=== PATIENT | female | born 1955 | race African-American/Black ===

== ENCOUNTER 2017-04-27 18:04 | Emergency (ER) | payer SELFPAY ==
[~2017-04-27] VITALS: Ht 172.7 cm; Wt 112.5 kg
[2017-04-27 18:23] VITALS: BP 156/99
--- NOTE | 2017-04-27 18:47 | Emergency Room Report ---
History of Present Illness General Chief Complaint: Dizziness Source: Patient Present Illness HPI [id number] sent by PMD Dr Manuel for dizziness for 5 days. Patient endorses "light headedness." Denies symptom worse with moving head, denies tinnitus, hearing loss, headache. Endorses "lots of stress at work." Doesnt exercise or have any other modality for relaxation Recently started on medication for BP 2 weeks ago Patient ambulated into ED. Allergies: Coded Allergies: No Known Allergies (Unverified , 04/27/17) Patient History Past Medical History: HTN Past Surgical History: none Pertinent Family History: none Social History: Denies: alcohol use, drug use, smoking Last Menstrual Period: na Now: No Immunizations: UTD Reviewed Nursing Documentation: PMH: Agreed, PSxH: Agreed Nursing Documentation-PMH Past Medical History: No History, Except For Hx Hypertension: Yes Review of Systems All Other Systems: negative except mentioned in HPI Physical Exam Vital Signs Date Time Temp Pulse Resp B/P Pulse Ox O2 Delivery O2 Flow Rate FiO2 04/27/17 18:09 98.1 68 18 156/99 98 Room Air Sp02 EP Interpretation: reviewed, abnormal General Appearance: normal inspection, well appearing, no apparent distress, alert, GCS 15, non-toxic Head: normocephalic, atraumatic Eyes: bilateral eye EOMI, bilateral eye PERRL ENT: normal ENT inspection, hearing grossly normal, normal voice, other - negative diana hallpike Neck: normal inspection, full range of motion, supple, no bony tend Respiratory: normal inspection, lungs clear, normal breath sounds, no respiratory distress, no retraction, no wheezing Cardiovascular #1: regular rate, rhythm, no edema Gastrointestinal: normal inspection, normal bowel sounds, non tender, soft, no guarding, no hernia Genitourinary: no CVA tenderness Musculoskeletal: normal inspection, back normal, normal range of motion, Pritesh' s Sign negative Neurologic: normal inspection, alert, oriented x3, responsive, manager operating III-XII nml as tested, motor strength/tone normal, speech normal Psychiatric: normal inspection, judgement/insight normal, mood/affect normal Skin: normal inspection, normal color, no rash Lymphatic: normal inspection Medical Decision Making Diagnostic Impression: Primary Impression: Lightheaded ER Course CT head negative ECG with LVH Labs unremarkable Negative diana hallpike. Unlikely BPPV Serial BP measurements and orthostatics are normal Encouraged meditation, exercise to patient Spoke with PMD - agrees with DC plan EKG Diagnostic Results Rate: normal Rhythm: NSR ST Segments: other - LVH ASA given to the pt in ED: No Rhythm Strip Diag. Results EP Interpretation: yes Rate: 64 Rhythm: NSR, no PVC's, no ectopy Last Vital Signs Date Time Temp Pulse Resp B/P Pulse Ox O2 Delivery O2 Flow Rate FiO2 04/27/17 18:23 98.1 68 18 156/99 98 Room Air Status: improved Disposition: HOME, SELF-CARE YANA PITTS M.D. Apr 27, 2017 18:47
[2017-04-27 18:50] LABS: EOSINOPHILS % (AUTO) 1.7 % (0.0-3.0); LYMPHOCYTES % (AUTO) 31.4 % (20.0-45.0); MEAN CORPUSCULAR HEMOGLOBIN 31.4 PG (27.0-31.0); MEAN CORPUSCULAR HGB CONC 31.8 G/DL (32.0-36.0); MEAN CORPUSCULAR VOLUME 99 FL (80-99); MEAN PLATELET VOLUME 7.6 FL (6.5-10.1); MONOCYTES % (AUTO) 6.9 % (1.0-10.0); PLATELET COUNT 248 K/UL (150-450); RED BLOOD COUNT 4.99 M/UL (4.20-5.40); RED CELL DISTRIBUTION WIDTH 12.4 % (11.6-14.8); WHITE BLOOD COUNT 11.1 K/UL (4.8-10.8)
[2017-04-27 19:00] VITALS: BP 123/76
[2017-04-27 19:20] LABS: TROPONIN I < 0.30 ng/mL (<=0.30)
[2017-04-27 19:23] LABS: ALANINE AMINOTRANSFERASE 12 U/L (3-33); ALBUMIN/GLOBULIN RATIO 1.5 (1.0-2.7); ANION GAP 14 (5-15); ASPARTATE AMINO TRANSFERASE 15 U/L (5-40); CALCIUM 9.5 mg/dL (8.6-10.2); CARBON DIOXIDE 26 mEQ/L (20-30); CHLORIDE 101 mEQ/L (98-107); CREATININE 0.9 mg/dL (0.5-0.9); GLOMERULAR FILTRATION RATE > 60 mL/min (>60); HEMOLYSIS 7; POTASSIUM 3.8 mEQ/L (3.4-4.9); SODIUM 141 mEQ/L (135-145); TOTAL PROTEIN 7.5 g/dL (6.6-8.7)
[2017-04-27 19:48] VITALS: BP 130/75
--- NOTE | 2017-04-28 11:17 | Diagnostic Imaging Report ---
Indications: Altered mental status Technique: Continuous helical CT imaging of the brain was performed with automatic exposure control on a Siemens sensation [address] scanner. Axial and coronal images were reconstructed at 5 mm slice thickness and interval. CTDI volume(s): 70 mGy Total DLP: 1347 mGy-cm Findings: Comparison: None Minimal low attenuation is present in the bifrontal periventricular white matter. Frontal sulci are mildly prominent. No evidence of mass or hemorrhage, mass effect, midline shift, hydrocephalus, or increased intracranial pressure. Bone window images are unremarkable. Visualized paranasal sinuses and mastoid air cells are clear. 1 cm circumscribed nodule in left frontal scalp. IMPRESSION: No evidence of acute intracranial pathology Minimal chronic microvascular ischemic change bifrontal periventricular white matter. Mild bifrontal atrophy. Nonspecific left frontal scalp nodule, may represent sebaceous cyst. The CT scanner at [facility] is accredited by the [employer] and the scans are performed using protocols designed to limit radiation exposure to as low as reasonably achievable to attain images of sufficient resolution adequate for diagnostic evaluation.
--- NOTE | 2017-04-28 14:24 | Diagnostic Imaging Report ---
Indications: Shortness of breath Technique: Portable AP chest Findings: Comparison: None Linear densities in both lung bases. Mild elevation apparent right hemidiaphragm. Heart size, pulmonary vasculature within normal limits. No pleural abnormality. Mild calcification aortic arch. No abnormal mediastinal widening. IMPRESSION: Pulmonary bibasal subsegmental atelectasis versus scarring Mild elevation apparent right hemidiaphragm, nonspecific, acuity indeterminate Aortosclerosis
== END 2017-04-27 19:51 | disposition home or self-care (01) ==
LOC: EMR 19:30
DX: R42 Dizziness and giddiness (principal); I10 Essential (primary) hypertension; L98.9 Disorder of the skin and subcutaneous tissue, unspecified; G31.9 Degenerative disease of nervous system, unspecified
CPT/HCPCS: 36415; 70450; 71010; 80053; 82550; 82553; 84484; 85025; 93005; 99284